=== PATIENT | female | born 1955 ===

== ENCOUNTER 2019-02-01 15:35 | Emergency (ER) | payer OTHER, SELFPAY ==
--- NOTE | 2019-02-01 17:31 | ED PDOC ---
HPI: Back Time Seen by Provider: 02/01/19 16:13 Chief Complaint (Nursing): Back Pain Chief Complaint (Provider): Back Pain History Per: Patient, Supervisor St[facility] (Mauritanian, #[id number]) History/Exam Limitations: no limitations Onset/Duration Of Symptoms: Days (x1) Current Symptoms Are (Timing): Still Present Additional Complaint(s): 63 year old female presents to the ED for evaluation of lower back pain described as cramping, worse with ambulation and movement for the past day. Patient reports that two days ago she helped move her friend's elderly father and believes that is the source of her pain. Denies history of back injury or surgery. Additionally denies fever, chest pain, shortness of breath, numbness, weakness, saddle anesthesia, incontinence, urinary symptoms, abdominal pain, nausea, vomiting, cough, and other complaints. PMD: Clinic Past Medical History Reviewed: Historical Data, Nursing Documentation, Vital Signs Vital Signs: Last Vital Signs Temp 98.2 F 02/01/19 15:46 Pulse 84 02/01/19 15:46 Resp 15 02/01/19 15:46 BP 143/72 02/01/19 15:46 Pulse Ox 98 02/01/19 15:46 - Medical History PMH: No Chronic Diseases - Surgical History Other surgeries: lipoma removed from left arm - Family History Family History: States: Unknown Family Hx - Social History Current smoker - smoking cessation education provided: No Alcohol: None Drugs: Denies - Home Medications Home Medications: Ambulatory Orders Medication Instructions Recorded Acetaminophen [Acetaminophen 8 650 mg PO Q8 PRN #21 tablet.er 02/01/19 Hour] Meloxicam [Mobic] 15 mg PO DAILY PRN #10 tablet 02/01/19 - Allergies Allergies/Adverse Reactions: Allergies Allergy/AdvReac Type Severity Reaction Status Date / Time No Known Allergies Allergy Verified 02/01/19 17:15 Review of Systems ROS Statement: Except As Marked, All Systems Reviewed And Found Negative Constitutional: Negative for: Fever Cardiovascular: Negative for: Chest Pain Respiratory: Negative for: Cough, Shortness of Breath Gastrointestinal: Negative for: Nausea, Vomiting, Abdominal Pain Genitourinary Female: Negative for: Dysuria, Frequency, Incontinence, Hematuria Musculoskeletal: Positive for: Back Pain (lower, cramping sensation, worse with movement and ambulation) Neurological: Negative for: Weakness, Numbness, Other (saddle anesthesia) Physical Exam - Reviewed Nursing Documentation Reviewed: Yes Vital Signs Reviewed: Yes - Physical Exam Comments: GENERAL APPEARANCE: Patient is awake, alert, oriented x 3, in no acute distress. Ambulatory in ED with steady gait. SKIN: Warm, dry; (-) cyanosis. ENMT: Mucous membranes moist. Airway patent, (-) stridor. NECK: Supple, FROM CHEST AND RESPIRATORY: (-) rales, (-) rhonchi, (-) wheezes; breath sounds equal bilaterally. Respirations even and nonlabored, speaking in full sentences. HEART AND CARDIOVASCULAR: (-) irregularity ABDOMEN AND GI: Soft; (-) tenderness (-) guarding (-) distention (-) CVA tenderness (-) palpable mass. BACK: (+) bilateral paralumbar tenderness, (+) midline L1-L4 tenderness, (-) deformity. EXTREMITIES: (-) deformity. Distal pulses good bilaterally. NEURO AND PSYCH: Mental status as above. Intact sensation bilaterally; normal strength in extension of the knees, plantar and dorsiflexion of the toes. Gait: steady. Speech: clear. (-) facial asymmetry (-) aphasia - ECG O2 Sat by Pulse Oximetry: 98 (RA) Pulse Ox Interpretation: Normal Medical Decision Making Medical Decision Making: Time: 1724 Initial Impression: acute back pain Initial Plan: --Lumbar spine XR --Tylenol 650mg PO --Valium 5mg PO --Reevaluation 1829 Lumbar XR: (-) acute fracture as read by Joshua SHELBY On re-evaluation, patient reports improvement of symptoms. On exam, patient remains AAOx3, in no acute distress. Vitals stable. Lab/Diagnostic results d/w the patient in great detail. Diagnosis of acute back pain/ lumbar strain d/w the patient. Based on history, exam and diagnostic results, plan will be for outpatient follow up. Patient instructed to follow-up with pmd / referral provided / the clinic in 1- 2 days without fail. Advised to take medication as prescribed. Return to the emergency room at any time for any new or worsening symptoms. Patient states she fully agrees with and understands discharge instructions. States that she agrees with the plan and disposition. Verbalized and repeated discharge instructions and plan. I have given the patient opportunity to ask any additional questions. Scribe Attestation: Documented by Sigrid Peacock, acting as a scribe for Sarahy Lewis PA-C Provider Scribe Attestation: All medical record entries made by the Scribe were at my direction and personally dictated by me. I have reviewed the chart and agree that the record accurately reflects my personal performance of the history, physical exam, medical decision making, and the department course for this patient. I have also personally directed, reviewed, and agree with the discharge instructions and disposition. Disposition - Clinical Impression Clinical Impression: Lumbar strain, Low back pain - Patient ED Disposition Is Patient to be Admitted: No Counseled Patient/Family Regarding: Studies Performed, Diagnosis, Need For Followup, Rx Given - Disposition Referrals: Magui Ravi MD [Staff Provider] - [facility] [Outside] Disposition: Routine/Home Disposition Time: 18:30 Condition: STABLE Additional Instructions: La atencin mdica de emergencia que recibi hoy se dirigi a maegan sntomas agudos. Si le recetaron algn medicamento, llnelo y tmelo segn las indicaciones. Los sntomas pueden tardar varios boo en resolverse. Regrese al Departamento de Emergencias si maegan sntomas empeoran, no mejoran o si tiene otros problemas. Comunquese con marshall mdico dentro de 2 boo para stefan nueva evaluacin y jeannie un seguimiento o llame a luisa de los mdicos / clnicas a los que murguia sido referido y que figuran en el formulario de Informacin de visita al paciente que se incluye en marshall paquete de salo. Lleve todos los documentos que le entregaron al momento del salo junto con todos los medicamentos que est tomando para marshall visita de seguimiento. Nuestro tratamiento no puede reemplazar la atencin mdica continua por parte de un proveedor de atencin primaria (PCP) fuera del departamento de emergencias. Prescriptions: Acetaminophen [Acetaminophen 8 Hour] 650 mg PO Q8 PRN #21 tablet.er PRN Reason: Pain, Moderate (4-7) Meloxicam [Mobic] 15 mg PO DAILY PRN #10 tablet PRN Reason: Pain, Moderate (4-7) Instructions: Low Back Pain in Adults, Muscle Strain (DC), Back Exercises, Lumbar Muscle Strain (DC) Forms: [facility] (Mauritanian), [facility] ED School/Work Excuse Print Language: CITIZEN OF [place] - POA Present On Arrival: None
[2019-02-01 19:44] VITALS: BP 138/78; PULSE 72; RESP 18; TEMP 97.9
[2019-02-01] MEDS ORDERED: Naproxen 500 MG TAB PO SCH (21:00)
--- NOTE | 2019-02-02 08:39 | RAD ---
Date of service: 02/01/2019 PROCEDURE: Radiographs of the Lumbar Spine. HISTORY: pain COMPARISON: No prior. FINDINGS: BONES: Slight 2 mm anterior subluxation of L5 relative to S1. Right L5-S1 facet hypertrophic arthrosis. The right pars interarticularis region on the oblique view appears attenuated. The left pars interarticularis region on the oblique view is ill defined-its integrity is indeterminate. L5-S1 facet arthrosis noted. Spondylolysis suspect per lateral view. No vertebral body fracture noted. Inferior right SI joint sclerotic arthrosis lesser similar findings on the left. Sclerotic pubic symphysis arthrosis. Bilateral hip arthrosis DISC SPACES: L5-S1 posterior space narrowing OTHER FINDINGS: Moderate stool retention. Atherosclerotic vascular calcifications present. IMPRESSION: No vertebral body fracture. Spondylolisthesis L5 on S1 primarily per the lateral view a L5 spondylolysis status is suspect. The oblique views are somewhat limited-pars interarticularis regions are less clearly appreciated on these views. Bilateral facet hypertrophic arthrosis regional to this site as well. An element of ligamentous laxity associated with facet hypertrophy is also possible. For more sensitive evaluation consider CT lumbar spine spine and/or consider MRI lumbar spine to also assess for any disc bulging or disc herniations. Other findings as above.
[2019-02-02 17:33] VITALS: O2SAT 98
== END 2019-02-01 19:44 | disposition home or self-care (01) ==
LOC: H.ER 15:35
DX: M54.5 Low back pain (principal)